=== PATIENT | male | born 1990 | race Caucasian/White ===

== ENCOUNTER → 2024-11-18 | Day surgery (SDC) | payer OTHER ==
[~2024-11-18] MED LIST: FENTANYL CITRATE/PF 100MCG/2 ML INJ ONE; MIDAZOLAM HCL 2 MG/2 ML VIAL ONE; OMEPRAZOLE40 MG PO; PROPOFOL IV EMULSION 10 MG/ML 20 ML VIAL ONE; PROPOFOL IV EMULSION 50 ML IV ONE; SUCRALFATE1 GM PO
[2024-11-18] MEDS: LACTATED RINGER'S 1,000 ML ONE (12:50)
[2024-11-18 15:00] VITALS: BP 120/84; PULSE 88; RESP 16; TEMP 97.3; O2SAT 100
== END | disposition home or self-care (01) ==
LOC: OR 11:10
PROVIDERS: ATTEND Internal Medicine Gastroenterology
DX: K21.9 Gastro-esophageal reflux disease without esophagitis (principal); K29.50 Unspecified chronic gastritis without bleeding; K31.89 Other diseases of stomach and duodenum; K62.5 Hemorrhage of anus and rectum; D12.5 Benign neoplasm of sigmoid colon; K63.5 Polyp of colon; K63.89 Other specified diseases of intestine; K64.8 Other hemorrhoids; R19.7 Diarrhea, unspecified; G71.00 Muscular dystrophy, unspecified; Z79.899 Other long term (current) drug therapy
CPT/HCPCS: 43239; 44391; 45385; 88305; 88342; J2250; J2470